=== PATIENT | female | born 1990 | race Caucasian/White ===

== ENCOUNTER 2017-11-23 20:11 | Emergency (ER) | payer OTHER ==
[~2017-11-23] VITALS: Ht 157.5 cm; Wt 64.0 kg
[~2017-11-23 20:11] MED LIST: ORTH1TAB PO
[2017-11-23 20:16] VITALS: BP 140/73; PULSE 71; RESP 16; TEMP 98.5; O2SAT 97
[2017-11-23] MEDS ORDERED: ORTH1TAB PO (20:26)
[2017-11-23] MEDS ORDERED: CYCL10TA PO (20:38)
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
== END 2017-11-23 20:45 | disposition home or self-care (01) ==
LOC: PHEFT 20:11
DX: S29.012A Strain of muscle and tendon of back wall of thorax, initial encounter (principal); Z79.899 Other long term (current) drug therapy; V43.52XA Car driver injured in collision with other type car in traffic accident, initial encounter
CPT/HCPCS: 99283